=== PATIENT | male | born 1990 | race Caucasian/White ===

== ENCOUNTER 2023-01-10 12:00 | Emergency (ER) | payer SELFPAY ==
[~2023-01-10] VITALS: Ht 264.2 cm; Wt 74.8 kg
[2023-01-10 12:11] VITALS: BP_SYST 150
--- NOTE | 2023-01-10 12:36 | NUR ---
SEEN BY DR. JAY. PENDING X-RAY.
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
[2023-01-10] MEDS ORDERED: IBUP-1971 PO (14:07)
[2023-01-10] MEDS ORDERED: TRAM50TA2 PO (14:07)
[2023-01-10] MEDS ORDERED: MORPHINE 4 MG INJ. 4 MG/ML VIAL IVP ONE (14:15)
--- NOTE | 2023-01-10 14:45 | NUR ---
ANALGESIA GIVEN FOR PAIN.
[2023-01-10 15:38] VITALS: BP_SYST 134
--- NOTE | 2023-01-10 15:41 | NUR ---
Patient given written and verbal discharge instructions and verbalizes understanding. ER MD discussed with patient the results and treatment provided. Patient in stable condition. ID arm band removed. IV catheter removed intact and dressing applied, no active bleeding. Rx of meds given. Patient educated on pain management and to follow up with PMD. Pain Scale . Opportunity for questions provided and answered. Medication side effect fact sheet provided.
== END 2023-01-10 15:41 | disposition home or self-care (01) ==
LOC: SED 12:00
DX: S52.121A Displaced fracture of head of right radius, initial encounter for closed fracture (principal); J45.909 Unspecified asthma, uncomplicated; Z79.899 Other long term (current) drug therapy; V00.841A Fall from standing electric scooter, initial encounter; Y93.89 Activity, other specified; Y92.89 Other specified places as the place of occurrence of the external cause; Y99.8 Other external cause status
CPT/HCPCS: 99283; 29105; 73080; 96372; J2270